=== PATIENT | female | born 1980 | race Caucasian/White ===

== ENCOUNTER 2023-12-28 14:28 | Emergency (ER) | payer OTHER, SELFPAY ==
[2023-12-28 14:34] VITALS: BP 116/80; PULSE 86; TEMP 36.7; O2SAT 97; BMI 18.8
--- NOTE | 2023-12-28 14:47 | ED.ABDPAIN1 ---
HPI - Abdominal Pain General Chief Complaint: Abdominal Pain Stated Complaint: ABDOMINAL PAIN Time Seen by Provider: 12/28/23 14:39 Source: patient Mode of arrival: walk-in Limitations: no limitations History of Present Illness HPI narrative: 43-year-old female presents to the emergency department for abdominal pain. It is in the right upper quadrant and she has had it for few weeks but it was worse today. She had a cholecystectomy about 8 years ago. No trauma or fever or diarrhea. She states she has been constipated recently. The pain is now severe and continuous. She does not complain of dysuria or lower abdominal pain or flank pain. Related Data Allergies Allergy/AdvReac Type Severity Reaction Status Date / Time No Known Drug Allergies Allergy Verified 12/28/23 14:34 Review of Systems ROS Narrative A ten point review of systems is negative except as noted above. Exam Narrative Exam Narrative: Nurses note and vital signs reviewed and patient is not hypoxic. General: The patient appears uncomfortable Skin: Warm, dry, no pallor noted. There is no rash noted. Head: Normocephalic, atraumatic Eye: Normal conjunctiva, no drainage Ears, Nose, Mouth, and Throat: oral mucosa is moist. Nares patent. Cardiovascular: Regular Rate and Rhythm Respiratory: Patient is in no distress, no accessory muscle use, lungs are clear to auscultation, no wheezing, rales or rhonchi Back: non-tender, no CVA tenderness bilaterally to percussion. GI: Soft and nondistended. No masses. Tenderness present in the right upper quadrant. Musculoskeletal: The patient has no evidence of calf tenderness, no pitting edema, symmetrical pulses noted bilaterally Neurological: A&O, normal speech Psychiatric: Cooperative Constitutional Vital Signs, click to edit/add: Last Vital Signs Temp 98.1 F 12/28/23 14:34 Pulse 86 12/28/23 14:34 Resp 20 12/28/23 14:34 BP 116/80 12/28/23 14:34 Pulse Ox 97 12/28/23 14:34 O2 Del Method Room Air 12/28/23 14:34 Course Vital Signs Vital signs: Vital Signs Temperature 98.1 F 12/28/23 14:34 Pulse Rate 86 12/28/23 14:34 Respiratory Rate 20 12/28/23 14:34 Blood Pressure 116/80 05/28/24 14:34 Pulse Oximetry 97 12/28/23 14:34 Oxygen Delivery Method Room Air 12/28/23 14:34 Temperature 98.1 F 12/28/23 14:34 Pulse Rate 86 12/28/23 14:34 Respiratory Rate 20 12/28/23 14:34 Blood Pressure 116/80 12/28/23 14:34 Pulse Oximetry 97 12/28/23 14:34 Oxygen Delivery Method Room Air 12/28/23 14:34 MDM - Abdominal Pain MDM Narrative Medical decision making narrative: Blood work and urinalysis are negative. CT scan shows constipation. She was given Dulcolax here as well as a bottle of magnesium citrate to go. Treatment diagnosis and follow-up were discussed with the patient and her . Differential Diagnosis Differential diagnosis: Likely abdominal pain, calculus of kidney, constipation, diverticulitis, gastroenteritis, pancreatitis and small bowel obstruction Lab Data Attestation: I reviewed the patient's lab results. Labs: Lab Results 12/28/23 12/28/23 Range/Units 14:45 15:35 WBC 13.3 H (4.0-11.0) 10^3/uL RBC 5.20 (4.20-5.40) 10^6/uL Hgb 15.6 (12.0-16.0) g/dL Hct 46.2 (36.0-48.0) % MCV 88.8 (81.0-99.0) fL MCH 30.0 (26.7-34.0) pg MCHC 33.8 (29.9-35.2) g/dL RDW 11.9 (11.0-15.0) % Plt Count 286 (150-450) 10^3/uL MPV 9.1 L (9.5-13.5) fL Neut % (Auto) 70.2 (43.0-75.0) % Lymph % (Auto) 22.5 (20.5-60.0) % [place] % (Auto) 5.0 (1.7-12.0) % Eos % (Auto) 1.1 (0.9-7.0) % Baso % (Auto) 0.8 (0.2-2.0) % Neut # (Auto) 9.3 H (1.4-6.5) 10^3/uL Lymph # (Auto) 3.0 (1.2-3.8) 10^3/uL [place] # (Auto) 0.7 (0.3-0.8) 10^3/uL Eos # (Auto) 0.2 (0.0-0.7) 10^3/uL Baso # (Auto) 0.1 (0.0-0.1) 10^3/uL Abs Immat Gran (auto) 0.05 H (0.00-0.03) 10^3/uL Imm/Tot Granulo (auto) 0.4 (0.0-0.5) % Sodium 139 (136-145) mmol/L Potassium 4.3 (3.5-5.1) mmol/L Chloride 105 (98-107) mmol/L Carbon Dioxide 28.6 (21.0-32.0) mmol/L Anion Gap 9.7 BUN 9.0 (7.0-18.0) mg/dL Creatinine 0.84 (0.55-1.02) mg/dL Est GFR ( Amer) >60 (>=60) Est GFR (Non-Af Amer) >60 (>=60) BUN/Creatinine Ratio 10.7 Glucose 84 (74-106) mg/dL Calcium 9.7 (8.5-10.1) mg/dL Total Bilirubin 0.6 (0.2-1.0) mg/dL Direct Bilirubin 0.1 (0.0-0.2) mg/dL AST 12 L (15-37) U/L ALT 20 (14-59) U/L Alkaline Phosphatase 111 (46-116) U/L Total Protein 7.4 (6.4-8.2) g/dL Albumin 4.0 (3.4-5.0) g/dL Globulin 3.4 g/dL Albumin/Globulin Ratio 1.2 Amylase 35 (25-115) U/L Lipase 26.0 (16.0-77.0) U/L Urine Color Yellow (YELLOW) Urine Clarity Clear (CLEAR) Urine pH 8.5 (5.0-9.0) Ur Specific [place] 1.010 (1.005-1.025) Urine Protein Negative (NEG/TRACE) mg/dL Urine Glucose (UA) Negative (NEGATIVE) mg/dL Urine Ketones Negative (NEGATIVE) mg/dL Urine Occult Blood Negative (NEGATIVE) Urine Nitrite Negative (NEGATIVE) Urine Bilirubin Negative (NEGATIVE) Urine Urobilinogen 0.2 (0.2-1.0) EU/dL Ur Leukocyte Esterase Negative (NEGATIVE) Urine RBC 0-2 (0-2) #/HPF Urine WBC 0-2 A (NONE SEEN) #/HPF Ur Squamous Epith Cells Few A (NONE/RARE) #/LPF Urine Crystals None seen (None Seen) #/HPF Urine Bacteria None seen (NONE SEEN) #/HPF Urine Casts None seen (NONE SEEN) #/LPF Urine Mucus None seen (NONE SEEN) Imaging Data CT scan - abdomen: Radiologist's impression: ITS Impressions Abdomen/Pelvis CT 12/28/23 15:22 IMPRESSION: No acute abnormality in the abdomen or pelvis. Electronically authenticated by: RACHEL GRANADOS Date: 12/28/2023 16:08 Discharge Plan Discharge Stand Alone Forms: Portal Instructions Chief Complaint: Abdominal Pain Clinical Impression: Constipation Patient Disposition: Home, Self-Care Time of Disposition Decision: 16:25 Condition: Good Mode of Transportation: Private Vehicle Print Language: Dominican Instructions: Constipation (ED) Referrals: Physician,Non-Staff, MD [Primary Care Provider] - 1 week
[2023-12-28 15:00] LABS: Basophils Absolute Auto 0.1 10^3/uL (0.0-0.1); Basophils Percent Auto 0.8 % (0.2-2.0); Eosinophils Absolute Auto 0.2 10^3/uL (0.0-0.7); Eosinophils Percent Auto 1.1 % (0.9-7.0); Hematocrit 46.2 % (36.0-48.0); Hemoglobin 15.6 g/dL (12.0-16.0); Immature Granulocytes Abs Auto 0.05 10^3/uL (0.00-0.03); Immature Granulocytes Pct Auto 0.4 % (0.0-0.5); Lymphocytes Percent Auto 22.5 % (20.5-60.0); Mean Corpuscular HGB Conc 33.8 g/dL (29.9-35.2); Mean Corpuscular Volume 88.8 fL (81.0-99.0); Mean Platelet Volume 9.1 fL (9.5-13.5); Monocytes Absolute Auto 0.7 10^3/uL (0.3-0.8); Neutrophils Absolute Auto 9.3 10^3/uL (1.4-6.5); Neutrophils Percent Auto 70.2 % (43.0-75.0); Platelet Count 286 10^3/uL (150-450); Red Cell Distribution Width 11.9 % (11.0-15.0); White Blood Count 13.3 10^3/uL (4.0-11.0)
[2023-12-28] MEDS: MORPHINE SULFATE 4 MG/ML VIAL IV ×2 (15:01→15:39)
[2023-12-28] MEDS: ONDANSETRON PF 4 MG/2 ML VIAL IV (15:02)
--- NOTE | 2023-12-28 15:22 | CT_ITS ---
The [address] [address] Patient Name: DARREN PATTEN MRN: [id number] date: 1980 Sex: F Assigned Patient Location: ER Current Patient Location: ER Accession/Order Number: [id number] Exam Date: 12/28/2023 15:10 Report Date: 12/28/2023 16:08 At the request of: KATLYN GIL Procedure: CT abdomen pelvis w con CT ABDOMEN/PELVIS WITH IV CONTRAST. INDICATION: RUQ pain, hx cholecystectomy. COMPARISON: There are no other studies available for comparison. TECHNIQUE: Contiguous axial images were obtained from the lung bases to the pelvic floor following the intravenous administration of contrast. Coronal and sagittal reformations are provided. FINDINGS: LOWER LUNGS: Clear. LIVER/BILIARY TREE: No mass. No intrahepatic ductal dilatation. GALLBLADDER: Status post cholecystectomy. No fluid collection in the gallbladder fossa. . CBD: Normal CBD. SPLEEN: Normal in size. PANCREAS: No acute findings. No peripancreatic fluid or inflammation. No pancreatic duct dilatation. No discrete mass. ADRENALS: Normal. KIDNEYS: No hydronephrosis. No radiopaque calculus. STOMACH AND BOWEL: Stomach is unremarkable. No dilated bowel loops. No bowel wall thickening. Moderate colonic fecal load. APPENDIX: Not visualized. PERITONEAL CAVITY: No fluid. No fat stranding. ABDOMINAL WALL: No subcutaneous stranding. No subcutaneous fluid collection. LYMPH NODES: No mesenteric or retroperitoneal lymphadenopathy by CT criteria. ABDOMINAL AORTA: No aneurysm. PELVIS: No acute abnormality. Status post hysterectomy. MUSCULOSKELETAL: No acute osseous abnormality. CT/CT abdomen pelvis w con IMPRESSION: No acute abnormality in the abdomen or pelvis. Electronically authenticated by: RACHEL GRANADOS Date: 12/28/2023 16:08
[2023-12-28 15:25] LABS: Alanine Aminotransferase 20 U/L (14-59); Albumin Globulin Ratio 1.2; Alkaline Phosphatase 111 U/L (46-116); Amylase 35 U/L (25-115); Anion Gap 9.7; Aspartate Amino Transferase 12 U/L (15-37); BUN Creatinine Ratio 10.7; Bilirubin Direct 0.1 mg/dL (0.0-0.2); Bilirubin Total 0.6 mg/dL (0.2-1.0); Calcium 9.7 mg/dL (8.5-10.1); Carbon Dioxide 28.6 mmol/L (21.0-32.0); Chloride 105 mmol/L (98-107); Estimated GFR (African America >60 (>=60); Estimated GFR (Non-African Ame >60 (>=60); Globulin 3.4 g/dL; Glucose 84 mg/dL (74-106); Potassium 4.3 mmol/L (3.5-5.1); Sodium 139 mmol/L (136-145); Total Protein 7.4 g/dL (6.4-8.2)
[2023-12-28 16:07] LABS: Bilirubin Urine NEGATIVE (NEGATIVE); Blood Urine NEGATIVE (NEGATIVE); Clarity Urine CLEAR (CLEAR); Color Urine YELLOW (YELLOW); Glucose Urine UA NEGATIVE (NEGATIVE); Ketones Urine NEGATIVE (NEGATIVE); Leukocyte Esterase Urine NEGATIVE (NEGATIVE); Nitrite Urine NEGATIVE (NEGATIVE); Protein Urine NEGATIVE (NEG/TRACE); Urobilinogen Urine 0.2 EU/dL (0.2-1.0); pH Urine 8.5 (5.0-9.0)
[2023-12-28 16:13] LABS: Bacteria Urine NONE SEEN #/HPF (NONE SEEN); Cast Seen? NONE SEEN #/LPF (NONE SEEN); Crystals Seen? None Seen #/HPF (None Seen); Mucus Urine NONE SEEN (NONE SEEN); RBC Urine 0-2 #/HPF (0-2); Squamous Epithelial Cell Urine FEW #/LPF (NONE/RARE); WBC Urine 0-2 #/HPF (NONE SEEN)
[2023-12-28 16:31] VITALS: BP 124/74; PULSE 74; O2SAT 100
[2023-12-28] MEDS: MAGNESIUM CITRATE 296 ML SOLUTION PO (16:36)
[2023-12-28] MEDS: BISACODYL 5 MG TABLET PO (16:36)
== END 2023-12-28 16:40 | disposition home or self-care (01) ==
PROVIDERS: Emergency Provider Emergency Medicine; Family Provider Physician Assistant Medical
DX: K59.00 Constipation, unspecified (principal)
CPT/HCPCS: 36415; 74177; 80048; 80076; 81001; 82150; 83690; 85025; 96374; 96375; 96376; 99285; Q9967